=== PATIENT | female | born 1960 | race Caucasian/White ===

== ENCOUNTER 2021-08-13 12:25 | Outpatient (CLI) | payer BC, SELFPAY ==
--- NOTE | 2021-08-13 | ECHO_ITS ---
Patient Info Name: Rhoda James Age: 61 years : 1960 Gender: Female Ht: 77 in Wt: 245 lbs BSA: 2.47 m2 HR: 82 bpm BP: 102 / 72 mmHg Heart Rhythm: Sinus Rhythm Technical Quality: Fair Exam Date: 08/13/2021 1:11 PM Exam Location: [facility] Pulmonary Patient Status: Outpatient Admit Date: 08/13/2021 Staff Ordering Physician: Oni, Ashley RON Tool Repair Technician: Liat Che RDCS Attending Provider: Oni, Ashley RON Exam Type: CA echo doppler color flow Study Info Indications R00.2 - Palpitations Complete two-dimensional, color flow and Doppler transthoracic echocardiogram is performed. Summary 1. Complete two-dimensional, color flow and Doppler transthoracic echocardiogram is performed. 2. Left ventricular chamber size, wall thickness, systolic are normal with no regional wall motion abnormalities with an estimated ejection fraction of 55-60%. Grade 1 diastolic dysfunction is present. Global longitudinal strain is normal at -18%. 3. No significant valve disease. 4. Lipomatous hypertrophy of the atrial septum noted, not pathological. 5. Normal sinus rhythm somewhat technically difficult study; parasternal views were fair quality. 6. Normal estimated pulmonary pressure. Left Ventricle Left ventricular chamber size, wall thickness, systolic are normal with no regional wall motion abnormalities with an estimated ejection fraction of 55-60%. Grade 1 diastolic dysfunction is present. Global longitudinal strain is normal at -18%. Left ventricular chamber dimension is normal. Left ventricular systolic function is normal, estimated at 55-60%. There is no increased left ventricular wall thickness. Left ventricular septal wall motion is normal. The left ventricular diastolic function is grade I diastolic dysfunction. Global longitudinal strain is normal at -18 %. Right Ventricle Right ventricular chamber dimension is normal. Right ventricular systolic function is normal. Left Atria Left atrial chamber dimension is normal. Right Atria Right atrial chamber dimension is normal. Aortic Valve The aortic valve is trileaflet. There is no aortic valve sclerosis. There is no aortic valve stenosis. There is no aortic valve regurgitation. Pulmonic Valve The pulmonic valve is normal. There is no pulmonic valve stenosis. There is trace pulmonic regurgitation. Mitral Valve The mitral valve has normal leaflets. There is no mitral valve stenosis. There is no mitral valve regurgitation. Tricuspid Valve The tricuspid valve leaflets are normal. There is no significant tricuspid valve stenosis. There is trace tricuspid valve regurgitation. No pulmonary hypertension, estimated pulmonary arterial systolic pressure is 27 mmHg. Pericardium/Pleural The pericardium appears normal. There is no pericardial effusion. Inferior Vena Cava Normal inferior vena cava with >50% collapse upon inspiration consistent with Empty right atrial pressure, 10 mmHg. Aorta The aortic root size at the sinus of Valsalva is normal. The prox ascending aorta size is normal. Left Ventricular Outflow Tract Name Value Normal LVOT 2D LVOT Diameter 2.0 cm LVOT Doppler
== END 2021-08-13 12:26 | disposition home or self-care (01) ==
LOC: ANHCARD 12:31
PROVIDERS: PCP Nurse Practitioner Family; Visit Provider Nurse Practitioner Family
DX: R00.2 Palpitations (principal)
CPT/HCPCS: 93306

== ENCOUNTER 2023-05-04 20:50 | Emergency (ER) | payer MEDICARE, MEDICAID, SELFPAY ==
--- NOTE | ~2023-05-04 | CT_ITS ---
Clinical Indication: Pulmonary embolus CT Scan of the Chest with Contrast: Technique: Contiguous sections were acquired throughout the chest after intravenous administration of 100 cc of Omnipaque 350. Dose reduction technique was used on this scan by utilizing automated expos ure control and iterative reconstruction technique. The dose-length product (DLP) was 795.57 mGy-cm. Findings: There is no evidence of any significant mediastinal, hilar or axillary lymphadenopathy. There is no f illing defect in the pulmonary arterial tree to suggest pulmonary embolus. There is no evidence of ao rtic dissection or aneurysm. There is no evidence of pleural or pericardial effusion. Calcified left lower lobe granuloma present. Several cysts present towards the lingula. Images through the upper abdomen reveal no abnormalities. Impression: No evidence of pulmonary embolus, aortic dissection, or aortic aneurysm. No significant pulmonary abnormality seen. Reviewed, dictated and finalized at [facility]. Impression: No evidence of pulmonary embolus, aortic dissection, or aortic aneurysm. No significant pulmonary abnormality seen.
--- NOTE | ~2023-05-04 | XR_ITS ---
EXAMINATION: XR chest 1V portable Exam Date/Time: 05/04/2023 22:42 CDT HISTORY: chest pain Comparison: None. RESULT: Lines, tubes, and devices: None. Lungs and pleura: Diffuse interstitial opacities. Granulomatous calcifications. Cardiomediastinal silhouette: Stable. Other: No acute osseous or upper abdominal finding. IMPRESSION: Mild interstitial edema. Reviewed, dictated and finalized at [facility]. IMPRESSION: Mild interstitial edema.
[2023-05-04 20:52] VITALS: BP 133/72; PULSE 79; RESP 16; TEMP 36.7; O2SAT 99
--- NOTE | 2023-05-04 20:57 | ECG_ITS ---
Measurements Intervals Luther Rate: 74 P: 13 AL: 169 QRS: 27 QRSD: 76 T: 62 QT: 384 QTc: 427 Interpretive Statements SINUS RHYTHM NO PREVIOUS ECG AVAILABLE FOR COMPARISON Electronically Signed On 05-05-2023 19:48:42 CDT by Luh Arias M.D.
[2023-05-04 22:34] VITALS: O2SAT 100
[2023-05-04 23:15] LABS: Basophils Absolute Auto 0.1 K/mm3 (0.0-0.1); Basophils Percent Auto 0.8 % (0.2-1.2); Eosinophils Absolute Auto 0.1 K/mm3 (0-0.3); Eosinophils Percent Auto 1.7 % (0-4.4); Hematocrit 40.5 % (37.0-47.0); Immature Granulocyte Absolute 0.01 K/mm3 (0.00-0.031); Immature Granulocyte Percent A 0.2 % (0-0.5); Lymphocytes Absolute Auto 2.68 K/mm3 (0.9-3.2); Lymphocytes Percent Auto 41.6 % (18.3-44.2); Mean Corpuscular HGB Conc 32.1 g/dl (32-36); Mean Corpuscular Hemoglobin 29.9 pg (26-34); Mean Corpuscular Volume 93.1 fl (80-100); Mean Platelet Volume 10.5 fl (7.4-10.4); Monocytes Absolute Auto 0.4 K/mm3 (0.1-0.6); Monocytes Percent Auto 5.4 % (2.6-8.5); Neutrophils Absolute Auto 3.2 K/mm3 (1.3-6.7); Neutrophils Percent Auto 50.3 % (45.5-73.1); Platelet Count Result 206 k/mm3 (150-375); Red Blood Count 4.35 M/mm3 (4.2-5.4); Red Cell Distribution Width 13.1 % (11.5-14.5); White Blood Count 6.4 K/mm3 (4.5-10.0)
[2023-05-04 23:26] LABS: Alanine Aminotransferase 19 U/L (6-35); Albumin Level 4.2 g/dL (3.5-5.1); Alkaline Phosphatase 81 U/L (38-126); Anion Gap 7 mmol/L (8-16); Aspartate Amino Transferase 22 U/L (14-36); Bilirubin,Total 0.5 mg/dL (0.2-1.3); Blood Urea Nitrogen 9 mg/dL (7-17); Calcium 9.2 mg/dL (8.4-10.2); Carbon Dioxide 22 mmol/L (22-30); Chloride 109 mmol/L (98-107); Estimated CRCL calculation 90 ml/min; Estimated Glomerular Filt Rate > 60; Glucose 109 mg/dL (65-110); Lipase 86 U/L (23-300); Magnesium 2.3 mg/dL (1.6-2.3); Potassium 4.2 mmol/L (3.4-5.0); Sodium 138 mmol/L (137-145)
[2023-05-04 23:37] LABS: NT Pro B Type Natriuretic Pept 174 pg/mL (19.9-100); Troponin I < 0.012 ng/mL (0.000-0.034)
[2023-05-04 23:45] VITALS: BP 128/74; PULSE 67; RESP 17; O2SAT 99
[2023-05-04 23:56] LABS: INR 0.9; Prothrombin Time 12.5 Seconds (11.1-14.7)
[2023-05-04 23:57] LABS: Partial Thromboplastin Time 36.7 SECONDS (22.3-36.8)
[2023-05-05 00:39] LABS: Appearance Urine Clear (Clear); Bacteria Urine None Seen /hpf; Bilirubin Urine Negative (Negative); Color Urine Yellow (Yellow); Glucose Urine UA Negative (Negative); Ketones Urine Negative (Negative); Leukocyte Esterase Ur Negative LEU/UL (Negative); Nitrate Urine Negative (Negative); Non Pathogenic Casts 0-2; Protein Urine Negative (Negative); Squamous Epithelial Cell Urine None seen /hpf (Few); WBC Urine 0-5 /hpf
[2023-05-05 00:42] LABS: Add Urine Microscopic? YES
[2023-05-05 00:45] VITALS: BP 127/76; PULSE 66; RESP 13; O2SAT 97
--- NOTE | 2023-05-05 02:07 | ED.GENADULT ---
HPI - General Adult General Chief complaint: Extremity Problem,Nontraumatic Stated complaint: right shoulder/neck swelling Time Seen by Provider: 05/04/23 22:30 History of Present Illness HPI narrative: Patient is a 63-year-old female who presents the emergency department with chief complaint of left shoulder and back discomfort. Patient reports that she has been having some discomfort started in her left clavicle area and neck area the patient reports the pain is a sharp patient does report that she felt some palpitations and felt little out of breath patient reports that she had no cough Related Data Allergies Allergy/AdvReac Type Severity Reaction Status Date / Time Sulfa (Sulfonamide Allergy Mild Vomiting Unverified 05/04/23 20:51 Antibiotics) Review of Systems Review of Systems: A 10 system review of systems was completed on the patient and is negative except for what is stated in the HPI. Nursing and ancillary documentation was reviewed. Exam Narrative: GENERAL: Well-appearing, well-nourished, and in no acute distress. HEAD: Normocephalic, atraumatic. EYES: PERRLA and EOMI. ENT: Nares clear, no rhinorrhea or epistaxis. Mucous membranes moist. NECK: Supple. CHEST: Clear to auscultation. No respiratory distress. HEART: Regular rate and rhythm. No murmur heard. Normal peripheral pulses. ABDOMEN: Soft, nontender, nondistended, normal active bowel sounds. EXTREMITIES: Normal range of motion. No edema. SKIN: Warm, dry, no rash. NEURO: No focal deficits. Alert and oriented x3. PSYCH: Normal mood and affect. Course Vital Signs Vital signs: Vital Signs Temperature 36.7 C 05/04/23 20:52 Pulse Rate 79 05/04/23 20:52 Respiratory Rate 16 05/04/23 20:52 Blood Pressure 133/72 05/04/23 20:52 Pulse Oximetry 99 05/04/23 20:52 Oxygen Delivery Room Air 05/04/23 20:52 Temperature 36.7 C 05/04/23 20:52 Pulse Rate 66 05/05/23 00:45 Respiratory Rate 13 05/05/23 00:45 Blood Pressure 127/76 05/05/23 00:45 Pulse Oximetry 97 05/05/23 00:45 Oxygen Delivery Room Air 05/04/23 22:34 Medical Decision Making MDM Narrative Medical decision making narrative: Differential diagnosis includes pneumonia, CHF, ACS, UTI, Laboratory studies were obtained which showed a normal CBC normal CMP BNP was 174 troponin was less than 0.012 urinalysis showed no evidence of UTI. Chest x-ray showed no focal infiltrate CTA chest showed no evidence of pulmonary embolism but did show some left hilar lymphadenopathy. Vital Signs Vital Signs: Vital Signs Temperature 36.7 C 05/04/23 20:52 Pulse Rate 79 05/04/23 20:52 Respiratory Rate 16 05/04/23 20:52 Blood Pressure 133/72 05/04/23 20:52 Pulse Oximetry 99 05/04/23 20:52 Oxygen Delivery Room Air 05/04/23 20:52 Temperature 36.7 C 05/04/23 20:52 Pulse Rate 66 05/05/23 00:45 Respiratory Rate 13 05/05/23 00:45 Blood Pressure 127/76 05/05/23 00:45 Pulse Oximetry 97 05/05/23 00:45 Oxygen Delivery Room Air 05/04/23 22:34 Lab Data 05/04/23 23:04 05/04/23 23:04 Labs: Lab Results 05/04/23 05/05/23 Range/Units 23:04 00:13 WBC 6.4 (4.5-10.0) K/mm3 RBC 4.35 (4.2-5.4) M/mm3 Hgb 13.0 (12.0-15.0) g/dL Hct 40.5 (37.0-47.0) % MCV 93.1 (80-100) fl MCH 29.9 (26-34) pg MCHC 32.1 (32-36) g/dl RDW 13.1 (11.5-14.5) % Plt Count 206 (150-375) k/mm3 MPV 10.5 H (7.4-10.4) fl Immature Gran % (Auto) 0.2 (0-0.5) % Neut % (Auto) 50.3 (45.5-73.1) % Lymph % (Auto) 41.6 (18.3-44.2) % Knott % (Auto) 5.4 (2.6-8.5) % Eos % (Auto) 1.7 (0-4.4) % Baso % (Auto) 0.8 (0.2-1.2) % Lymph # (Auto) 2.68 (0.9-3.2) K/mm3 Knott # (Auto) 0.4 (0.1-0.6) K/mm3 Eos # (Auto) 0.1 (0-0.3) K/mm3 Baso # (Auto) 0.1 (0.0-0.1) K/mm3 Abs Immat Gran (auto) 0.01 (0.00-0.031) K/mm3 Absolute Neuts (auto) 3.2 (1.3-6.7) K/mm3 Abs
[2023-05-05 02:37] VITALS: BP 110/74; PULSE 68; RESP 16; O2SAT 98
== END 2023-05-05 02:39 | disposition home or self-care (01) ==
PROVIDERS: Emergency Provider Emergency Medicine; PCP Nurse Practitioner Family
DX: R59.0 Localized enlarged lymph nodes (principal); M25.512 Pain in left shoulder; M54.6 Pain in thoracic spine
CPT/HCPCS: 36415; 71045; 71275; 80053; 81001; 83690; 83735; 83880; 84484; 85025; 85610; 85730; 93005; 99284; Q9967